=== PATIENT | female | born 1995 | race Caucasian/White ===

== ENCOUNTER 2021-08-28 19:00 | Inpatient (IN) ==
[2021-08-28] MEDS ORDERED: D5 1/2 NS 1,000 ML 1,000 ML IV ONE ×2 (19:04→19:33)
[2021-08-28 19:19] VITALS: BMI 29.6
[2021-08-28 19:33] LABS: BILIRUBIN,URINE NEGATIVE (NEGATIVE); BLOOD/HEMOGLOBIN,URINE 1+ (NEGATIVE); GLUCOSE, URINE NEGATIVE (NEGATIVE); KETONES,URINE NEGATIVE (NEGATIVE); LEUKOCYTE ESTERASE ,URINE NEGATIVE (NEGATIVE); NITRITES,URINE NEGATIVE (NEGATIVE); PROTEIN,URINE NEGATIVE (NEGATIVE); UROBILINOGEN,URINE NORMAL (NORMAL)
[2021-08-28 19:38] LABS: BASOPHILS # (AUTO) 0.1 X10^3/uL (0.0-0.1); BASOPHILS % (AUTO) 0.4 % (0.2-1.0); EOSINOPHILS # (AUTO) 0.3 x10^3/uL (0.0-0.2); HEMATOCRIT 33.9 % (36.0-47.0); HEMOGLOBIN 11.7 g/dL (12.0-16.0); LYMPHOCYTES # (AUTO) 2.9 X10^3/uL (1.3-2.9); LYMPHOCYTES % (AUTO) 21.6 % (21.0-51.0); MEAN CORPUSCULAR HEMOGLOBIN 29.6 pg (27.0-34.0); MEAN CORPUSCULAR HGB CONC 34.5 g/dL (33.0-35.0); MEAN CORPUSCULAR VOLUME 85.8 fL (80.0-100.0); MEAN PLATELET VOLUME 9.6 fL (7.4-11.0); MONOCYTES % (AUTO) 7.5 % (0.0-13.0); NEUTROPHILS # (AUTO) 9.1 x10^3/uL (2.2-4.8); NEUTROPHILS % (AUTO) 68.5 % (42.0-75.0); RED BLOOD COUNT 3.95 X10^6/uL (3.5-5.4); RED CELL DISTRIBUTION WIDTH 12.8 % (11.6-16.5); WHITE BLOOD COUNT 13.2 X10^3/uL (3.6-10.0)
[2021-08-28 19:46] LABS: ALANINE AMINOTRANSFERASE 12 Units/L (12-78); ALBUMIN 2.4 g/dL (3.4-5.0); ALKALINE PHOSPHATASE 186 Units/L (46-116); ASPARTATE AMINO TRANSFERASE 13 Units/L (15-37); BLOOD UREA NITROGEN 9 mg/dL (7-18); CALCIUM 8.6 mg/dL (8.5-10.1); CARBON DIOXIDE 26.6 mmol/L (21-32); CHLORIDE 106 mmol/L (98-107); COR CA(FOR HYPOALB) 9.9 mg/dL (8.5-10.1); CREATININE 0.92 mg/dL (0.55-1.02); SODIUM 141 mmol/L (136-145); TOTAL PROTEIN 6.3 g/dL (6.4-8.2); eGFR NON BLACK RACES > 60 (>60)
[2021-08-28] MEDS ORDERED: MORPHINE SULFATE INJ 2 MG INJ IVP PRN (19:52)
[2021-08-28] MEDS ORDERED: D5 LR + PITOCIN 10 UNITS/L 10 UNITS/1,000 ML BAG IV PRN (19:52)
[2021-08-28] MEDS ORDERED: PHENERGAN INJ 25 MG IM PRN (19:52)
[2021-08-28] MEDS ORDERED: STADOL INJ IVP PRN (19:52)
[2021-08-28] MEDS ORDERED: PITOCIN IVP ONE (19:52)
[2021-08-28] MEDS ORDERED: REGLAN INJ 10 MG VIAL IVP PRN (19:52)
[2021-08-28 19:57] LABS: AMNISURE ROM TEST THERE IS A RUPTURE (NO RUPTURE)
[2021-08-28 19:59] LABS: APPEARANCE,URINE CLEAR (CLEAR); COLOR,URINE YELLOW (YELLOW)
[2021-08-28 20:00] LABS: BACTERIA,URINE NEGATIVE /HPF (NEGATIVE); RBC,URINE 0-2 /HPF (0-3); SQUAMOUS EPITHELIAL CELL,UR RARE /HPF (NEGATIVE)
[2021-08-28] MEDS ORDERED: BETADINE SOLN ONE (20:11)
[2021-08-28] MEDS ORDERED: PITOCIN ONE (20:11)
[2021-08-28] MEDS ORDERED: D5 1/2 NS 1,000 mL + PITOCIN 20 UNITS/L IV 20 UNITS/1,000 ML BAG IV ONE (20:12)
[2021-08-28] MEDS ORDERED: FENTANYL VIAL INJ 100 mcg ONE (20:54)
[2021-08-28] MEDS ORDERED: LR 1,000 ML IV 1,000 ML IV ONE (20:55)
[2021-08-28] MEDS ORDERED: NAROPIN EPIDURAL 0.2% 100 ML ONE (20:55)
[2021-08-28] MEDS ORDERED: D5 LR + PITOCIN 10 UNITS/L 10 UNITS/1,000 ML BAG IV ONE (23:31)
[2021-08-29] MEDS ORDERED: ZOFRAN INJ 4 MG VIAL ONE (00:22)
[2021-08-29] MEDS ORDERED: REGLAN INJ 10 MG VIAL ONE (00:24)
[2021-08-29] MEDS ORDERED: ZOFRAN INJ 4 MG VIAL IVP ONE (00:27)
[2021-08-29] MEDS ORDERED: PEPCID 20 MG VIAL ONE (02:48)
[2021-08-29] MEDS ORDERED: NS 100 ML IV 100 ML ONE (02:48)
[2021-08-29] MEDS ORDERED: D5 1/2 NS 1,000 ML 1,000 ML IV SCH (05:00)
[2021-08-29] MEDS ORDERED: D5 1/2 NS 1,000 ML 1,000 ML IV ONE ×2 (05:14→21:07)
[2021-08-29] MEDS ORDERED: NAROPIN EPIDURAL 0.2% 100 ML ONE (10:04)
[2021-08-29] MEDS ORDERED: XYLOCAINE 1 % (PLAIN) ONE (10:40)
[2021-08-29] MEDS ORDERED: PHENERGAN INJ 25 MG IM PRN (11:54)
[2021-08-29] MEDS ORDERED: MOTRIN TAB 800 MG PO PRN (11:54)
[2021-08-29] MEDS ORDERED: TORADOL 30 MG VIAL ONE (12:02)
[2021-08-29] MEDS ORDERED: HEMABATE IM ONE (12:31)
[2021-08-29] MEDS ORDERED: PERCOCET TAB 5/325 MG ONE (12:36)
[2021-08-29] MEDS ORDERED: MILK OF MAGNESIA PO PRN (12:39)
[2021-08-29] MEDS ORDERED: DERMOPLAST PAIN RELIEF SPRAY TOP PRN (12:39)
[2021-08-29] MEDS ORDERED: AMBIEN PO PRN (12:39)
[2021-08-29] MEDS ORDERED: ADACEL or BOOSTRIX TDaP VACCINE IM ONE (12:39)
[2021-08-29] MEDS ORDERED: ZOFRAN INJ 4 MG VIAL IVP PRN (12:45)
[2021-08-29] MEDS ORDERED: TORADOL 30 MG VIAL IVP PRN (12:47)
[2021-08-29] MEDS ORDERED: PERCOCET TAB 5/325 MG PO PRN (12:48)
[2021-08-29] MEDS: D5 1/2 NS 1,000 ML 1,000 ML with PITOCIN 20 UNITS IV SCH ×4 (18:31→21:32)
[2021-08-29] MEDS ORDERED: PITOCIN ONE (20:40)
[2021-08-29] MEDS ORDERED: BETADINE SOLN ONE (22:35)
[2021-08-30 05:14] LABS: HEMATOCRIT 22.1 % (36.0-47.0)
[2021-08-30 05:21] LABS: HEMOGLOBIN 7.7 g/dL (12.0-16.0)
[2021-08-30] MEDS: D5 1/2 NS 1,000 ML 1,000 ML with PITOCIN 20 UNITS IV SCH ×2 (06:47)
--- NOTE | 2021-08-30 07:41 | NOTE.PROOB ---
progress Note OB- Subjective Data Subjective: No complaints, decreased lochia. Tolerating regular diet. No N/V. Ambulating well. No dysuria. Objective Data Result Diagrams: 08/30/21 04:07 08/28/21 19:11 Objective Data: CV= RRR no MRG Lungs=CTA Bilaterally Abd=(+) BS, soft, NTND, Fundus firm/NT/ at { } cm below umbilicus. Ext=no edema, NT, no cords Assessment Assessment: ready for D/C Plan (1) Term delivered: Plan: ready for d/c desire to start OCP at PP visit (2) Anemia affecting : Plan: will start [id number]
[2021-08-30] MEDS ORDERED: PRENATAL PLUS PO SCH (09:00)
[2021-08-30 14:57] VITALS: BP 110/62
== END 2021-08-30 16:00 | disposition home or self-care (01) | DRG 807 ==
LOC: ER 19:00 → LD 19:52 → EDSTATUS 20:02 → MED/SURG 08-29 14:07
PROVIDERS: ADMIT Obstetrics & Gynecology; ATTEND Obstetrics & Gynecology